=== PATIENT | female | born 1960 | race Caucasian/White ===

== ENCOUNTER 2016-05-21 10:36 | Emergency (ER) | payer MEDICAID, MEDICARE ==
[2016-05-21 10:49] VITALS: TEMP 98.3; BMI 34.7
[2016-05-21] MEDS ORDERED: BUPIVACAINE 0.5% 30 ML VIAL INF ONE (10:53)
--- NOTE | 2016-05-21 10:59 | EDPRACDOC ---
- General Information Chief Complaint: Wound Stated Complaint: ABSCESS, CHEST Time Seen by Provider: 05/21/16 10:52 Information Source: Patient Mode of Arrival:: Car Home Medications: Home Medications Gabapentin [Neurontin] 600 mg PO TID 04/09/15 Insulin Lispro [Humalog] 0 units SQ .SLIDING SCALE 04/09/15 Alprazolam [Xanax] 0.5 mg PO DAILY PRN 04/13/15 Promethazine [Phenergan] 25 mg PO Q6-8H PRN #20 tab 04/13/15 BuPROPion (Daily formulation) [Wellbutrin Xl] 150 mg PO HS 05/21/16 Clindamycin [Cleocin] 300 mg PO TID #60 capsule 05/21/16 Hydrocodone Bit/Acetaminophen [Hydrocodon-Acetaminophen 5-325] 1 - 2 tab PO Q6H PRN #15 tab 05/21/16 Insulin Glargine [Lantus Pen] 40 units SQ HS 05/21/16 Lisinopril [Zestril] 20 mg PO DAILY 05/21/16 Paroxetine HCl [Paxil] 40 mg PO DAILY 05/21/16 Allergies/Adverse Reactions: Allergies Allergy/AdvReac Type Severity Reaction Status Date / Time codeine [Codeine] Allergy Unknown/See Verified 05/21/16 10:43 Comments Sulfa (Sulfonamide Allergy Unknown/See Verified 05/21/16 10:43 Antibiotics) Comments [Sulfa(Sulfonamide Antibiotics)] - History of Present Illness Onset: 1 week HPI: PT C/O ABSCESS THAT IS RED SWOLLEN AND PAINFUL OVER STERNAL REGION X 1 WEEK. Location: Reports: Chest (STERNAL REGION) Last Tetanus: No Prior Abscess: Reports: Different Pain: Reports: Moderate Quality: Reports: Painful, Red Associated Signs & Symptoms: Reports: None ED Past Medical History - History Reviewed Yes Nurses notes reviewed and agree except as marked Travel Outside of [place] in the Last 3 Months?: No - Patient Medical History Neurological History: Reports: Cerebrovascular Accident (2014 LEFT SIDE), Migraine Cardiac History: Reports: Coronary Artery Disease, Hypertension, Heart Attack ( 2011), Cardiac Catheterization, CABG, Stress Test, Hypercholesterolemia, Syncope Respiratory History: Reports: COPD, Pneumonia GI/ History: Reports: Urinary Tract Infection, Gastroesophageal Reflux, Diverticulosis Musculoskeletal History: Reports: Arthritis (and fibromyalgia. Back pain.) Psychological History: Reports: Depression, Anxiety, Bipolar Disorder, Substance Use Disorder Systemic History: Reports: Diabetes. Denies: Anemia Additional Past Medical History: CHRONIC BACK PAIN Surgical History: Reports: Cholecystectomy, CABG, Hysterectomy, Angioplasty, Cardiac Catheterization, Other (shoulder surgery, back surgery (x3)) - Family Medical History Reports: Cancer (Mother and brother: brain cancer), Cardiac Disorders (CHF in patient's father). Denies: Diabetes - Social Medical History Smoking Status: Heavy tobacco smoker (5 or more cigarettes/day or daily pipe/ cigar) Social History: Reports: Substance Use Disorder. Denies: Amphetamine Use ETOH: None Substance Abuse: None Lives With: Other Lives In: Home EDM Review of Systems - Review of Systems ROS Negative Except as Marked: Yes All systems reviewed and were negative except as marked Constitutional: No Symptoms Reported. negative: Fever, Chills, Weakness, Fatigue, Loss of Appetite Eyes: No Symptoms Reported. negative: Redness, Blurred Vision, Double Vision, Discharge, Pain, Light Sensitive, Photophobia Ears: No Symptoms Reported. negative: Pain, Hearing Loss, Drainage, Ear Pulling Throat: No Symptoms Reported. negative: Pain, Swelling Nose: No Symptoms Reported. negative: Congestion, Bleeding, Discharge, Injection, Swelling, Deformity, Ecchymosis, Tender, Abrasion, Laceration Mouth: No Symptoms Reported. negative: Pain, Drooling Respiratory: No Symptoms Reported. negative: Cough, Brassy Cough, Barky Cough, Shortness of Breath, Wheezing, Hemoptysis Cardiovascular: No Symptoms Reported. negative: Chest Pain, Palpitations, Syncope, Edema, Orthopnea, PND, Skin Mottling, Cyanosis Gastrointestinal: No Symptoms Reported. negative: Pain, Constipation, Nausea, Vomiting, Diarrhea, Melena, Formula Intolerance Genitourinary: No Symptoms Reported. negative: Dysuria, Hematuria, Frequency, Discharge, Bleeding, Testicular Pain, Neurological: No Symptoms Reported. negative: Headache, Dizziness, Seizure, Numbness, Weakness, Speech Difficulty, Gait Difficulty Musculoskeletal: No Symptoms Reported. negative: Neck, Chestwall, Ribs, Back, Shoulder, Arm, Elbow, Forearm, Wrist, Hand, Pelvis, Hip, Femur, Knee, Leg, Ankle , Foot Integumentary: Other (ABSCESS OVER STERNAL REGION). negative: Bruising, Itching , Rash, Wound Allergic/Immunologic: No Symptoms Reported. negative: Hives, Itching Hematologic: No Symptoms Reported. negative: Lymphadenopathy, Easy Bruising, Easy Bleeding Endocrine: No Symptoms Reported. negative: Weight Gain, Weight Loss Psychiatric: No Symptoms Reported. negative: Anxiety, Depression, Hallucinations, Insomnia, Suicidal - Physical Exam Constitutional: Alert (Awake), No apparent distress Oriented to: Time, Person, Place Last recorded Vital Signs: Last Vital Signs Temp 98.3 F 05/21/16 10:43 Pulse 78 05/21/16 10:43 Resp 18 05/21/16 10:43 BP 198/81 H 05/21/16 10:43 Pulse Ox 98 05/21/16 10:43 Oxygen Pulse Oxygen Saturation 98 O2 Device Room Air Oxygen Flow Rate Fraction of Inspired Oxygen ( FIO2) - HEENT Head: Normal ( normocephalic) Eye Exam: Normal (PERRL, EOMI, Sclera white) Oropharynx: Normal (Pharynx:Moist without exudate,Gums-no swelling) Tympanic Membrane: Normal ENT EAC: Normal TMJ: Normal Nose: No Symptoms Reported (septum midline) Neck: Normal (FROM, trachea at midline) - Respiratory/Cardiovascular Respiratory: Normal - CTA (BBS clear to auscultation without adventitious sounds ) Cardiovascular: Normal (RRR without murmur, gallop or rub) - GI Auscultation: Normal (NABS) Palpation: Normal (Soft,No rebound or guarding, non distended) Tenderness: Non tender Casas's Sign: Negative - Musculoskeletal Back: Normal (Non-Tender) Extremities: Normal (Normal tone, Pulses 2+ No cyanosis or edema, FROM) - Integumentary Skin: Normal, Warm, Dry, Other (ABSCESS OVER STERNUM) Lymphatics: Normal (no adenopathy) - Neurologic Memory Impaired: Normal Motor Function: Normal (Normal tone, Pulses 2+ No cyanosis or edema, FROM) Cranial Nerve: Normal (CN II-X11 intact sensation, strength 5/5) Cerebellar: Normal Mood Description: Normal Perception: Normal ED Abscess/Mass Exam - Integumentary Skin: Normal Mass: Red, Tender, Fluctuant, Local Cellulitis Lymphatics: Normal ED Procedures - Incision and Drainage Informed of risks, benefits and alternatives described.: Yes Informed Consent Signed: Verbal Indication: Painful Mass Anesthetic: Bupivacaine Prep: Betadine Blade Size: 11 Incised Site drained: Reports: Blood, Pus Incised site was: Not irrigated, Not Packed with Iodoform Notes: THERE APPEARED TO BE SAC FORMATION WITH PARTIAL REMOVAL. - Differential Diagnosis Abscess, Cellulitis Decision Time to Discharge: 11:55 - Departure Disposition: Home Condition: Stable Final Diagnosis: Abscess Instructions: Abscess (ED) Education/Counseling Given To: Patient Education/Counseling Given Regarding: Diagnosis, Treatment, Prognosis, Follow Up Referrals: Tru Noble MD [Primary Care Provider] - One Week Prescriptions: New Clindamycin [Cleocin] 300 mg PO TID #60 capsule Hydrocodone Bit/Acetaminophen [Hydrocodon-Acetaminophen 5-325] 1 - 2 tab PO Q6H PRN #15 tab PRN Reason: Pain No Action Gabapentin [Neurontin] 600 mg PO TID Insulin Lispro [Humalog] 0 units SQ .SLIDING SCALE Alprazolam [Xanax] 0.5 mg PO DAILY PRN PRN Reason: Anxiety Promethazine [Phenergan] 25 mg PO Q6-8H PRN #20 tab PRN Reason: Nausea/Vomiting Paroxetine HCl [Paxil] 40 mg PO DAILY Lisinopril [Zestril] 20 mg PO DAILY BuPROPion (Daily formulation) [Wellbutrin Xl] 150 mg PO HS Insulin Glargine [Lantus Pen] 40 units SQ HS Additional Instructions: RETURN IN 2 DAYS FOR WOUND CHECK OR SOONER FOR WORSE OR DIFFERENT SYMPTOMS.
[2016-05-21 11:15] VITALS: BP 177/86; PULSE 61
== END 2016-05-21 12:00 | disposition home or self-care (01) ==
LOC: ED 10:36
DX: L02.213 Cutaneous abscess of chest wall (principal)
CPT/HCPCS: 10060; 87070; 87075; 99283; A9270; J3490

== ENCOUNTER 2016-05-23 10:57 | Emergency (ER) | payer MEDICARE ==
[2016-05-23 11:57] VITALS: BP 126/68; PULSE 86; TEMP 98.6; BMI 37.1
--- NOTE | 2016-05-23 13:35 | EDPRACDOC ---
- General Information Chief Complaint: Wound Stated Complaint: WOUND CHECK Time Seen by Provider: 05/23/16 13:21 Mode Of Arrival: Car Home Medications: Home Medications Gabapentin [Neurontin] 600 mg PO TID 04/09/15 Insulin Lispro [Humalog] 0 units SQ .SLIDING SCALE 04/09/15 Alprazolam [Xanax] 0.5 mg PO DAILY PRN 04/13/15 Promethazine [Phenergan] 25 mg PO Q6-8H PRN #20 tab 04/13/15 BuPROPion (Daily formulation) [Wellbutrin Xl] 150 mg PO HS 05/21/16 Clindamycin [Cleocin] 300 mg PO TID #60 capsule 05/21/16 Hydrocodone Bit/Acetaminophen [Hydrocodon-Acetaminophen 5-325] 1 - 2 tab PO Q6H PRN #15 tab 05/21/16 Insulin Glargine [Lantus Pen] 40 units SQ HS 05/21/16 Lisinopril [Zestril] 20 mg PO DAILY 05/21/16 Paroxetine HCl [Paxil] 40 mg PO DAILY 05/21/16 Allergies/Adverse Reactions: Allergies Allergy/AdvReac Type Severity Reaction Status Date / Time codeine [Codeine] Allergy Unknown/See Verified 05/23/16 11:57 Comments Sulfa (Sulfonamide Allergy Unknown/See Verified 05/23/16 11:57 Antibiotics) Comments [Sulfa(Sulfonamide Antibiotics)] - History of Present Illness Onset: Wound Location: CHEST Wound Discharge: Purulent Previously Treated In: [place] [facility] Current Wound Treatment: Antibiotics Associated Signs and Symptoms: None Other History: PT RETURNS TODAY FOR WOUND CHECK. I&D WITH ANTIBIOTICS HERE. PT STATES HEALING WELL. 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 Back pain.) Psychological History: Reports: Depression, Anxiety, Bipolar Disorder, Substance Use Disorder Systemic History: Reports: Diabetes. Denies: Anemia Additional Past Medical History: CHRONIC BACK PAIN Surgical History: Reports: Cholecystectomy, CABG, Angioplasty, Cardiac Catheterization, Other (shoulder surgery, back surgery (x3)). Denies: Hysterectomy - Family Medical History Reports: Cancer (Mother and brother: brain cancer), Cardiac Disorders (CHF in patient's father). Denies: Diabetes - Social Medical History Smoking Status: Heavy tobacco smoker (5 or more cigarettes/day or daily pipe/ cigar) Social History: Reports: Substance Use Disorder. Denies: Amphetamine Use EDM Review of Systems - Review of Systems ROS Negative Except as Marked: Yes All systems reviewed and were negative except as marked Constitutional: No Symptoms Reported Respiratory: No Symptoms Reported Cardiovascular: No Symptoms Reported Gastrointestinal: No Symptoms Reported Musculoskeletal: Chestwall Integumentary: Wound - Physical Exam Constitutional: Alert (Awake), No apparent distress Oriented to: Time, Person, Place Last recorded Vital Signs: Last Vital Signs Temp 98.6 F 05/23/16 11:55 Pulse 86 05/23/16 11:55 Resp 18 05/23/16 11:55 BP 126/68 05/23/16 11:55 Pulse Ox 97 05/23/16 11:55 Oxygen Pulse Oxygen Saturation 97 O2 Device Room Air Oxygen Flow Rate Fraction of Inspired Oxygen ( FIO2) - HEENT Head: Normal Eye Exam: Normal Neck: Normal, Denies Pain, Midline - Respiratory/Cardiovascular Respiratory: Normal - CTA, Other (NOTED 2 CM LINEAR LACERATION TO CENTER CHEST WHERE RECENT I&D WAS; STILL DRAINING PURULENT DISCHARGE; ERYTHEMA ONLY TO WOUND EDGES. PT DENIES PAIN.) Cardiovascular: Normal - GI Palpation: Normal Tenderness: Non tender - Musculoskeletal Back: Normal Extremities: Normal - Integumentary Skin: Normal Lymphatics: Normal - Neurologic Cerebellar: Normal Mood Description: Normal Thought: Coherent Perception: Normal ED Wound Check Exam - Wound Detail Wound Location: CHEST WALL Healing: Well Discharge: Purulent Erythema: Localized to Wound Edges Decision Time to Discharge: 13:34 - Departure Disposition: Home Condition: Good Final Diagnosis: Wound check, abscess Instructions: MRSA (Methicillin-Resistant Staphylococcus Aureus) (ED) Education/Counseling Given To: Patient Education/Counseling Given Regarding: Diagnosis, Treatment, Follow Up Referrals: Tru Noble MD [Primary Care Provider] - One Week Prescriptions: No Action Gabapentin [Neurontin] 600 mg PO TID Insulin Lispro [Humalog] 0 units SQ .SLIDING SCALE Alprazolam [Xanax] 0.5 mg PO DAILY PRN PRN Reason: Anxiety Promethazine [Phenergan] 25 mg PO Q6-8H PRN #20 tab PRN Reason: Nausea/Vomiting Clindamycin [Cleocin] 300 mg PO TID #60 capsule Hydrocodone Bit/Acetaminophen [Hydrocodon-Acetaminophen 5-325] 1 - 2 tab PO Q6H PRN #15 tab PRN Reason: Pain Paroxetine HCl [Paxil] 40 mg PO DAILY Lisinopril [Zestril] 20 mg PO DAILY BuPROPion (Daily formulation) [Wellbutrin Xl] 150 mg PO HS Insulin Glargine [Lantus Pen] 40 units SQ HS Additional Instructions: CONTINUE MEDICATIONS PRESCRIBED. CONTINUE WARM COMPRESSES TO ALLOW WOUND TO DRAIN AND KEEP COVERED. RETURN TO ED IF ABSCESS WORSENS.
== END 2016-05-23 13:41 | disposition home or self-care (01) ==
LOC: EDMC 10:57
DX: L02.213 Cutaneous abscess of chest wall (principal)
CPT/HCPCS: 99282